=== PATIENT | male | born 1980 | race Two or more races ===

== ENCOUNTER 2024-03-22 18:13 | Emergency (ER) | payer BC, OTHER ==
[~2024-03-22] VITALS: Ht 180.3 cm; Wt 61.7 kg
[2024-03-22 19:10] VITALS: PULSE 101; RESP 18; O2SAT 99
[2024-03-22] MEDS: AMOXICILLIN/CLAVUL 875 MG TAB PO ONE (19:14)
[2024-03-22] MEDS: KETOROLAC TROMETH 30 MG/ML 1ML VIAL IM ONE (19:15)
[2024-03-22] MEDS ORDERED: AUG875T PO (19:27)
[2024-03-22 20:03] VITALS: BP 113/80; PULSE 91; RESP 17; TEMP 98.7; O2SAT 95
== END 2024-03-22 20:06 | disposition home or self-care (01) ==
LOC: ER 18:13
DX: K04.7 Periapical abscess without sinus (principal); E11.9 Type 2 diabetes mellitus without complications
CPT/HCPCS: 96372; 99283; J1885